=== PATIENT | female | born 1990 | race American Indian/Alaskan Native ===

== ENCOUNTER 2022-06-02 15:32 | Emergency (ER) | payer SELFPAY ==
[2022-06-02 16:41] VITALS: BP 126/76
--- NOTE | 2022-06-02 17:05 | Emergency Department Report ---
Chief Complaint: Extremity Injury, Upper Stated Complaint: SHOULDER/JOINT PAIN Time Seen by Provider: 06/02/22 17:00 - HPI History of Present Illness: Patient is a 31-year-old female that comes to the emergency room with bilateral upper extremity pain after lifting a lot of boxes at work. She states that this is acute on chronic. She describes it as a neuropathic pain. She also has it of her lower extremities which she says is chronic. She has no known trauma. S he is neurologically intact. She is asking for pain medications and a work note. - Exam Vital Signs: Vital Signs 06/02/22 16:38 Temperature 98.9 F Pulse Rate 91 H Respiratory 18 Rate Blood Pressure 126/76 O2 Sat by Pulse 100 Oximetry Physical Exam: Sharp shooting pain down the right arm. This is acute on chronic. She reports similar pain to her bilateral lower extremities. She denies any fever. The pain does not wake her up at night. She states the pain is worse in the morning. She has no fever or chills. No abdominal pain. No back pain. She has no incontinence. S1-S2 Lungs clear Abdomen soft nontender No CVA tenderness Neurovascularly intact. She is texting on her cell phone during my interview. She is ambulatory and in no acute distress MSE screening note: Focused history and physical exam performed. Due to findings the following was ordered: Patient has a nonmedical emergency. She is leaving the ER and will follow-up with orthopedics in the morning. She is been given a referral to Dr. Dejesus. ED Disposition for MSE Clinical Impression: Neuropathic pain Disposition: LEFT WITHOUT BEING SEEN Is pt being admited?: No Does the pt Need Aspirin: No Condition: Stable Additional Instructions: follow up with Dr Dejesus- ortho in AM referral below take motrin 800mg by mouth every 8 hours for the pain Referrals: KAYCEE DEJESUS MD [Staff Physician] - 3-5 Days Forms: Work/School Release Form(ED) Time of Disposition: 17:09
== END 2022-06-02 18:00 | disposition home or self-care (01) ==
LOC: ED 15:32
DX: G62.9 Polyneuropathy, unspecified (principal)
CPT/HCPCS: 99282